=== PATIENT | female | born 1965 | race Caucasian/White ===

== ENCOUNTER 2023-06-03 11:33 | Outpatient (OUT) | payer BC, SELFPAY ==
--- NOTE | 2023-06-03 | XR_ITS ---
The [address] [address] Patient Name: RANCHO JORDAN MRN: [id number] date: 1965 Sex: F Assigned Patient Location: [facility] Current Patient Location: [facility] Accession/Order Number: [id number] Exam Date: 06/03/2023 11:30 Report Date: 06/03/2023 12:53 At the request of: FARHAT MALONE Procedure: XR hand RT min 3V PROCEDURE: XR hand RT min 3V COMPARISON: None. HISTORY: RIGTH HAND PAIN FINDINGS: BONES:No acute fracture or dislocation. No joint space narrowing or marginal osteophyte formation. Sclerosis noted along the lateral base of the fifth metacarpal, nonspecific. Some subchondral erosions noted along the lateral head of the third middle phalanx SOFT TISSUES:Negative. No visible soft tissue swelling. EFFUSION:None visible. OTHER: Negative. XR/XR hand RT min 3V IMPRESSION: No acute abnormality Electronically authenticated by: GARRET SINGH Date: 06/03/2023 12:53
== END 2023-06-03 11:34 | disposition home or self-care (01) ==
LOC: RAD 11:33
PROVIDERS: Visit Provider Orthopaedic Surgery
DX: M79.641 Pain in right hand (principal)
CPT/HCPCS: 73130

== ENCOUNTER 2023-08-14 16:22 | Outpatient (OUT) | payer BC, SELFPAY ==
--- OUTSIDE RECORDS SUMMARY | 2023-08-14 16:34 | XMS_ITS | CCD ---
Author Organization [facility] Care Team Providers Care Access Nurse Name Role Phone SHRUTHI MARTÍNEZ Attending Unavailable Encounters Encounter Date Encounter Type Care Provider Facility Start: 05-08-2023 End: 05-08-2023 ambulatory SHRUTHI MARTÍNEZ Not Available Payers Date Payer Category Payer Unknown [id number] 1965 Unknown [id number] Summary Purpose Family History No Family History Records Found Advance Directives No Advanced Directives Records Found Additional Source Comments INFORMATION SOURCE (unrecogn ized section and content) DATE CREATED AUTHOR 05/09/2023 [facility] EPIC FOR RECORDS PERTAINING TO PATIENTS WHO ARE OR HAVE BEEN ENROLLED IN A CHEMICAL DEPENDENCY/SUBSTANCEABUSE PROGRAM, SOME INFORMATION MAY BE OMITTED. This clinical summary was aggregated from multiple sources. Caution should be exercised in using it in the provision of clinical care. This summary normalizes information from multiple sources, and as a consequence, information in this document may materially change the coding, format and clinical context of patient data. In addition, data may be omitted in some cases. CLINICAL DECISIONS SHOULD BE BASED ON THE PRIMARY CLINICAL RECORDS. [employer] provides no warranty or guarantee of the accuracy or completeness of information in this document.
[2023-08-14 16:57] LABS: Basophils Absolute Auto 0.1 10^3/uL (0.0-0.1); Basophils Percent Auto 0.8 % (0.2-2.0); Eosinophils Absolute Auto 0.3 10^3/uL (0.0-0.7); Eosinophils Percent Auto 3.8 % (0.9-7.0); Hematocrit 42.2 % (36.0-48.0); Hemoglobin 13.4 g/dL (12.0-16.0); Immature Granulocytes Abs Auto 0.02 10^3/uL (0.00-0.03); Immature Granulocytes Pct Auto 0.3 % (0.0-0.5); Lymphocytes Absolute Auto 2.4 10^3/uL (1.2-3.8); Lymphocytes Percent Auto 31.9 % (20.5-60.0); Mean Corpuscular HGB Conc 31.8 g/dL (29.9-35.2); Mean Corpuscular Hemoglobin 29.3 pg (26.7-34.0); Mean Corpuscular Volume 92.1 fL (81.0-99.0); Mean Platelet Volume 10.4 fL (9.5-13.5); Monocytes Absolute Auto 0.5 10^3/uL (0.3-0.8); Monocytes Percent Auto 6.3 % (1.7-12.0); Neutrophils Absolute Auto 4.2 10^3/uL (1.4-6.5); Neutrophils Percent Auto 56.9 % (43.0-75.0); Platelet Count 254 10^3/uL (150-450); Red Blood Count 4.58 10^6/uL (4.20-5.40); Red Cell Distribution Width 12.9 % (11.0-15.0); White Blood Count 7.4 10^3/uL (4.0-11.0)
[2023-08-14 17:10] LABS: Estimated Average Glucose 111 mg/dL; Glycohemoglobin A1C 5.5 % (4.5-6.2)
[2023-08-14 17:23] LABS: Alanine Aminotransferase 29 U/L (14-59); Albumin Level 3.7 g/dL (3.4-5.0); Alkaline Phosphatase 116 U/L (46-116); Anion Gap 11.2; Aspartate Amino Transferase 15 U/L (15-37); BUN Creatinine Ratio 27.7; Bilirubin Direct 0.1 mg/dL (0.0-0.2); Bilirubin Total 0.3 mg/dL (0.2-1.0); Calcium 9.3 mg/dL (8.5-10.1); Carbon Dioxide 27.7 mmol/L (21.0-32.0); Chloride 106 mmol/L (98-107); Cholesterol 196 mg/dL (<=200); Estimated GFR (African America >60 (>=60); Estimated GFR (Non-African Ame 56 (>=60); Globulin 3.7 g/dL; Glucose 101 mg/dL (74-106); HDL Cholesterol 65 mg/dL (40-60); Potassium 3.9 mmol/L (3.5-5.1); Sodium 141 mmol/L (136-145); Thyroid Stimulating Hormone 1.545 uIU/mL (0.358-3.740); Total Protein 7.4 g/dL (6.4-8.2); Triglycerides 179 mg/dL (<=150); VLDL CHOLESTEROL 35.8 mg/dL
== END 2023-08-14 16:23 | disposition home or self-care (01) ==
PROVIDERS: PCP Family Medicine; Visit Provider Family Medicine
DX: Z00.00 Encounter for general adult medical examination without abnormal findings (principal)
CPT/HCPCS: 36415; 80048; 80061; 80076; 83036; 84443; 85025